=== PATIENT | female | born 1955 | race African-American/Black ===

== ENCOUNTER 2016-08-22 09:07 | Day surgery (SDC) | payer OTHER ==
[2016-08-18 11:58] VITALS: BMI 35.1
[2016-08-22] MEDS ORDERED: MIDAZOLAM HCL 2 MG/2 ML SINGLE DOSE VIAL ONE (17:25)
[2016-08-22] MEDS ORDERED: ceFAZolin SODIUM 1 GM VIAL IVPB ONE (17:30)
[2016-08-22] MEDS ORDERED: PROPOFOL 20 ML ONE ×4 (17:35→18:20)
[2016-08-22] MEDS ORDERED: LIDOCAINE HCL 1%, 10 MG/ML (20ML VIAL) ONE (17:41)
[2016-08-22] MEDS ORDERED: LIDOCAINE HCL 1%, 10 MG/ML (50 mL VIAL) IJ ONE (18:19)
[2016-08-22] MEDS ORDERED: ONDANSETRON 4 MG/2 ML VIAL IVPUSH PRN (18:39)
[2016-08-22] MEDS ORDERED: oxyCODONE HCL 5 MG TABLET PO PRN (18:39)
[2016-08-22] MEDS ORDERED: LACTATED RINGERS SOLUTION 1,000 ML IV SCH (18:45)
--- NOTE | 2016-08-22 18:52 | OP ---
Operative Note - Note: Operative Date: 08/22/16 Pre-Operative Diagnosis: urge incontinence/neurogenic bladder Operation: full interstim implant Implants: medtronic interstim implant Post-Operative Diagnosis: Same as Pre-op Surgeon: Liu Eisenberg Anesthesia: General, MAC
[2016-08-22 19:16] VITALS: BP 148/80; PULSE 64; TEMP 98
== END 2016-08-22 22:24 | disposition home or self-care (01) ==
LOC: JASU-SURG 09:07 → J6S 19:15 → JASU-SURG 22:24
PROVIDERS: ATTEND Urology
PROC: 01HY0MZ Insertion of Neurostimulator Lead into Peripheral Nerve, Open Approach (ICD-10-PCS; 2016-08-22)
PROC: 0JH70BZ Insertion of Single Array Stimulator Generator into Back Subcutaneous Tissue and Fascia, Open Approach (ICD-10-PCS; principal; 2016-08-22 16:15)
DX: N39.41 Urge incontinence (principal); N31.8 Other neuromuscular dysfunction of bladder
CPT/HCPCS: 64581; 64590; C1767; C1778; 76000-TC; 94760

== ENCOUNTER 2017-01-30 07:19 | Day surgery (SDC) | payer OTHER ==
[2017-01-26 17:06] VITALS: BMI 33.3
[2017-01-30] MEDS ORDERED: ONDANSETRON 4 MG/2 ML VIAL IVPUSH PRN (10:19)
[2017-01-30] MEDS ORDERED: LACTATED RINGERS SOLUTION 1,000 ML IV SCH (10:30)
[2017-01-30] MEDS ORDERED: MIDAZOLAM HCL 2 MG/2 ML SINGLE DOSE VIAL ONE (10:47)
[2017-01-30] MEDS ORDERED: LEVOFLOXACIN 500 MG PREMIX BAG IVPB ONE (10:57)
[2017-01-30] MEDS ORDERED: PROPOFOL 20 ML ONE ×2 (11:13)
[2017-01-30 11:50] VITALS: TEMP 98
[2017-01-30 13:51] VITALS: BP 132/77; PULSE 64
--- NOTE | 2017-01-30 14:19 | OP ---
Operative Note - Note: Operative Date: 01/30/17 Pre-Operative Diagnosis: right renal stone Operation: right eswl Findings: 8mm right lower pole renal stone Post-Operative Diagnosis: Same as Pre-op Surgeon: Liu Eisenberg Anesthesia: MAC
--- NOTE | 2017-01-30 21:50 | OP ---
DATE OF OPERATION: 01/30/2017 PREOPERATIVE DIAGNOSIS: Right renal stone. POSTOPERATIVE DIAGNOSIS: Right renal stone. PROCEDURE: Right extracorporeal shock wave lithotripsy. ATTENDING: Allyssa House MD ANESTHESIA: MAC. DESCRIPTION OF OPERATION: The patient was brought in the operating room, placed on the operating table in the supine position. Ultrasonography and fluoroscopy were performed. An 8-mm right lower pole stone was identified. MAC anesthesia and Levaquin were given preoperatively. At this point, extracorporeal shock wave lithotripsy was administered; 3000 impulses at 18-20 joules of power were administered to the stone. Excellent fragmentation was noted of the stone without complications noted. The patient tolerated the procedure well, and disposition was to recovery room. ALLYSSA HOUSE M.D. /[id number]
== END 2017-01-30 13:35 | disposition home or self-care (01) ==
LOC: JASU-SURG 07:19
PROVIDERS: ATTEND Urology
PROC: 0TF3XZZ Fragmentation in Right Kidney Pelvis, External Approach (ICD-10-PCS; principal; 2017-01-30 08:45)
DX: N20.0 Calculus of kidney (principal)
CPT/HCPCS: 94760

== ENCOUNTER 2017-08-28 07:17 | Day surgery (SDC) | payer OTHER ==
[2017-08-25 16:36] VITALS: BMI 40.4
[2017-08-28] MEDS ORDERED: SUCCINYLCHOLINE CHLORIDE 200 MG/10 ML VIAL ONE (07:29)
[2017-08-28] MEDS ORDERED: MIDAZOLAM HCL 2 MG/2 ML SINGLE DOSE VIAL ONE ×2 (07:30→08:35)
[2017-08-28] MEDS ORDERED: ONDANSETRON 4 MG/2 ML VIAL IVPUSH PRN (07:36)
[2017-08-28] MEDS ORDERED: LACTATED RINGERS SOLUTION 1,000 ML IV SCH (07:45)
[2017-08-28] MEDS ORDERED: KETAMINE HCL 200 MG/20 ML VIAL ONE (08:37)
[2017-08-28] MEDS ORDERED: PROPOFOL 20 ML ONE (08:55)
--- NOTE | 2017-08-28 10:07 | OP ---
Operative Note - Note: Operative Date: 08/28/17 Pre-Operative Diagnosis: Right kidney stone Operation: Right ESWL Findings: 12 mm lower pole Right kidney stone Post-Operative Diagnosis: Same as Pre-op Surgeon: Liu Eisenberg (no intra op complication) Anesthesia: Fractional Estimated Blood Loss (mls): 0
[2017-08-28 12:36] VITALS: BP 151/92; PULSE 71; TEMP 97.8
--- NOTE | 2017-08-28 22:26 | OP ---
DATE OF OPERATION: 08/28/2017 PREOPERATIVE DIAGNOSIS: Right renal stone. POSTOPERATIVE DIAGNOSIS: Right renal stone. PROCEDURE: Right extracorporeal shock wave lithotripsy. ANESTHESIA: Fractional. DESCRIPTION OF OPERATION: Patient was brought in the operating room, placed in supine position on the operating room table. Ultrasonography and fluoroscopy were performed. A 12-mm right lower pole stone was identified. Fractional anesthesia and antibiotics were then given to the patient. At this point, shock wave lithotripsy is performed; 3000 impulses at 20 joules of power were administered to the stone with excellent fragmentation under real-time ultrasonography and fluoroscopy. No complications were noted. The disposition of the patient was to the recovery room. Alfredo [id number]
== END 2017-08-28 12:30 | disposition home or self-care (01) ==
LOC: JASU-SURG 07:17
PROVIDERS: ATTEND Urology
PROC: 0TF3XZZ Fragmentation in Right Kidney Pelvis, External Approach (ICD-10-PCS; principal; 2017-08-28 08:45)
DX: N20.0 Calculus of kidney (principal)
CPT/HCPCS: 82962

== ENCOUNTER 2020-12-28 04:37 | Day surgery (SDC) | payer OTHER ==
[2020-12-24 11:39] VITALS: BMI 36.6
[2020-12-28] MEDS ORDERED: PROPOFOL 20 ML ONE ×2 (10:27→10:55)
[2020-12-28] MEDS ORDERED: MIDAZOLAM HCL 2 MG/2 ML SINGLE DOSE VIAL ONE (10:27)
[2020-12-28] MEDS ORDERED: ACETAMINOPHEN 500 MG TABLET (FP) PO PRN (12:15)
[2020-12-28] MEDS ORDERED: ONDANSETRON 4 MG/2 ML VIAL IVPUSH PRN (12:15)
[2020-12-28] MEDS ORDERED: oxyCODONE HCL 5 MG TABLET PO PRN (12:15)
[2020-12-28] MEDS ORDERED: LACTATED RINGERS SOLUTION 1,000 ML IV SCH (12:15)
[2020-12-28] MEDS ORDERED: ALBUTEROL SO4 HFA INHALER IH ONE (12:19)
[2020-12-28 12:32] VITALS: TEMP 98.7
[2020-12-28 12:55] VITALS: BP 153/90; PULSE 58
== END 2020-12-28 14:14 | disposition home or self-care (01) ==
LOC: JASU-SURG 04:37
PROVIDERS: ATTEND Urology
PROC: 0TF3XZZ Fragmentation in Right Kidney Pelvis, External Approach (ICD-10-PCS; principal; 2020-12-28 10:30)
DX: N20.0 Calculus of kidney (principal)
CPT/HCPCS: 82962; 94760